=== PATIENT | female | born 2005 | race Caucasian/White ===

== ENCOUNTER 2024-08-06 12:57 | Emergency (ER) | payer SELFPAY ==
[2024-08-06 13:01] VITALS: BP 147/99; PULSE 87; RESP 17; TEMP 36.7; O2SAT 99
--- NOTE | 2024-08-06 14:52 | PC.NURSE ---
Pt seen exiting ER w/ steady gait, did not notify station examiner she declined to be seen.
== END 2024-08-06 16:08 | disposition left against medical advice (07) ==
LOC: ANHED 14:57
PROVIDERS: PCP Pediatrics
DX: R05.9 Cough, unspecified (principal)
CPT/HCPCS: 99199